=== PATIENT | female | born 1985 | race Caucasian/White ===

== ENCOUNTER 2018-03-29 23:59 | Emergency (ER) | payer OTHER ==
[2018-03-30 00:15] VITALS: BP 142/91
--- NOTE | 2018-03-30 00:19 | EDPHY ---
H & P Stated Complaint: Short of breath, history of Panic Disorder. Time Seen by Provider: 03/30/18 00:18 HPI/ROS: 33-year-old female presents complaining of sudden onset around 11:00 p.m. Of panic attack. Today is the anniversary of her father's and she was out with friends and suddenly ran outside feeling very panicked. She denies chest pain. She admits she is having a hard time calming down and this is very similar to prior panic attacks she has had. No leg swelling or calf pain. Review of systems As per HPI General no fever no chills no weakness HEENT no eye pain no eye discharge. No eye redness, no sore throat Respiratory no cough, no shortness of breath Cardiac no chest pain, no peripheral edema GI no abdominal pain, no diarrhea, no constipation, no nausea, no vomiting no flank pain, no hematuria, no dysuria Musculoskeletal no myalgias, no joint pain Heme no easy bruising, no easy bleeding Endo no polyuria, no polydipsia Skin no rashes, no pruritus Neuro no syncope, no dizziness, no headaches Psych is no suicidal ideation, no homicidal ideation Source: Patient Exam Limitations: No limitations - Personal History Current Tetanus/Diphtheria Vaccine: Unsure Current Tetanus Diphtheria and Acellular Pertussis (TDAP): Unsure - Medical/Surgical History Hx Asthma: No Hx Chronic Respiratory Disease: No Hx Diabetes: No Hx Cardiac Disease: No Hx Renal Disease: No Hx Cirrhosis: No Hx Alcoholism: No Hx HIV/AIDS: No Hx Splenectomy or Spleen Trauma: No Other PMH: Panic disorder, depression, anxiety. - Family History Significant Family History: No pertinent family hx - Social History Smoking Status: Heavy smoker Alcohol Use: Occasionally Drug Use: None - Physical Exam Exam: 33-year-old female alert and oriented anxious, pressured speech Vital signs stable Normal oxygen saturation HEENT atraumatic normocephalic, extraocular muscles intact, anicteric Oropharynx negative for erythema negative exudate, tolerating her own secretions Neck supple no meningismus Lungs clear to auscultation bilaterally Heart regular rate and rhythm without murmur rub or gallop Abdomen nondistended normoactive bowel sounds soft nontender Back no CVA tenderness, no step-offs, no spinal tenderness Extremities no cyanosis clubbing or edema Neuro alert and oriented, no focal deficits Constitutional: Initial Vital Signs Temperature (C) 37.3 C 03/30/18 00:05 Heart Rate 97 03/30/18 00:05 Respiratory Rate 16 03/30/18 00:05 Blood Pressure 142/91 H 03/30/18 00:05 O2 Sat (%) 96 03/30/18 00:05 O2 Delivery Mode Room Air Allergies/Adverse Reactions: No Known Allergies Allergy (Unverified 03/30/18 00:16) Home Medications: Medication Instructions Recorded Venlafaxine HCl 03/30/18 Medical Decision Making ED Course/Re-evaluation: Patient seen and evaluated for sudden onset of panic attack. Physical exam normal, vital signs stable Patient given lorazepam 1 mg p.o. with marked relief in symptoms. Imp Panic attack pt with hx of panic disorder plan home return as needed Differential Diagnosis: differential diagnosis considered not limited to: anxiety, panic disorder, substance abuse, altitude exposure, dehydration - Data Points Medications Given: Discontinued Medications Lorazepam (Ativan) 1 mg PO EDNOW ONE Stop: 03/30/18 00:28 Last Admin: 03/30/18 00:33 Dose: 1 mg Lorazepam (Ativan 1 Mg Prepack#4) 1 btl TAKEHOME EDNOW ONE Stop: 03/30/18 01:08 Last Admin: 03/30/18 01:12 Dose: 1 btl Departure - Departure Disposition: Home, Routine, Self-Care Clinical Impression: Panic attack Condition: Good Instructions: Lorazepam (By mouth), Panic Attack (ED) Referrals: Neema Wilson MD [Medical Doctor] - As per Instructions
[2018-03-30] MEDS ORDERED: LORazepam 1 MG TAB PO ONE (00:27)
[2018-03-30] MEDS ORDERED: LORAZEPAM 1 MG PREPACK#4 BTL TAKEHOME ONE (01:07)
== END 2018-03-30 01:11 | disposition home or self-care (01) ==
LOC: CED 23:59
DX: F41.0 Panic disorder [episodic paroxysmal anxiety] (principal)